=== PATIENT | female | born 1955 | race Caucasian/White ===

== ENCOUNTER → 2023-09-01 13:03 | Outpatient (REF) | payer MEDICARE, SELFPAY | LOC: RCS 13:03 | PROVIDERS: ATTENDING PHYSICIAN Internal Medicine; FAMILY PHYSICIAN Family Medicine | DX: I10 Essential (primary) hypertension (principal); I48.0 Paroxysmal atrial fibrillation | CPT/HCPCS: 93306 ==

== ENCOUNTER → 2023-09-15 12:57 | Outpatient (REF) | payer MEDICARE, SELFPAY ==
[2023-09-15 13:32] LABS: % Basophils 0.3 % (0-2); % Eosinophils 1.7 % (0-6); % Immature Granulocytes 0.2 % (0-0.5); % Lymphocytes 17.6 % (20.5-51.1); % Monocytes 5.3 % (1.7-9.3); % Neutrophils 74.9 % (42.2-75.2); Absolute Eosinophils 0.2 10^3/uL (0-0.7); Absolute Lymphocytes 1.6 10^3/uL (1.2-3.4); Absolute Monocytes 0.5 10^3/uL (0.1-0.6); Absolute Neutrophils 6.6 10^3/uL (1.4-6.5); Hematocrit 36.3 % (37.0-47.0); Mean Corp Hgb Conc. 33.1 g/dL (33.0-37.0); Mean Corpuscular Hgb 31.8 pg (27.0-31.0); Mean Corpuscular Volume 96.3 fL (81.0-99.0); Mean Platelet Volume 9.5 fL (7.4-10.4); Nucleated Red Blood Cells % 0 %; Platelet Count 223 10^3/uL (130-400); Red Blood Cell Count 3.77 10^6/uL (4.20-5.40); Red Cell Dist. Width 12.5 % (11.5-14.5); White Blood Cell Count 8.8 10^3/uL (4.8-10.8)
[2023-09-15 14:38] LABS: ALT (SGPT) 16 U/L (0-35); AST (SGOT) 22 U/L (14-36); Albumin 3.9 g/dl (3.5-5.0); Alkaline Phosphatase 196 U/L (38-126); Blood Urea Nitrogen 13 mg/dl (7-17); Calcium 9.6 mg/dl (8.4-10.2); Carbon Dioxide 28 mmol/L (22-30); Chloride 99 mmol/L (98-107); Glucose 89 mg/dl (70-99); Sodium 135 mmol/L (135-145); Total Bilirubin 0.7 mg/dl (0.2-1.3); eGFR > 60.00
== END ==
LOC: REG 12:57
PROVIDERS: ATTENDING PHYSICIAN Surgery Plastic and Reconstructive Surgery; FAMILY PHYSICIAN Family Medicine
DX: Z01.818 Encounter for other preprocedural examination (principal)
CPT/HCPCS: 36415; 80053; 85025

== ENCOUNTER 2023-09-22 06:12 | Day surgery (SDC) | payer MEDICARE, SELFPAY ==
[2023-09-22] VITALS (10 sets, daily range): BP systolic 123–166; BP diastolic 63–83; BMI 45.1
--- NOTE | 2023-09-22 10:48 | W.SUR.PREOP ---
Pre-Operative Surgical Note
-
I have examined this patient prior to the performance of the scheduled procedure.
The patient's condition is unchanged from the time of the current History and
Physical and the patient is able to undergo the scheduled procedure.
[2023-09-22] MEDS: NORMOSOL-R 1000 IV (11:21)
[2023-09-22] MEDS: TYLENOL 1000 MG PO (11:25)
[2023-09-22] MEDS: TAMBOCOR 100 MG PO (11:40)
--- NOTE | 2023-09-22 15:49 | W.IMMPOSTOP ---
Surgical Immed Post Op Note
-
Primary Surgeon: ERIKA Orosco MD
Assisting Surgeon:
Pre-op Diagnosis: left neck mass
Post-op Diagnosis: same
Procedure Performed: excision of subfascial soft tissue mass left neck, 7 x 13 cm
Anesthesia Type: General
Specimen / Cultures: left neck mass
Estimated Blood Loss: minimal
Complications: none
Operative Findings: as expected,
--- NOTE | 2023-09-22 15:50 | OR.RPT ---
Operative Report
Operative Report
Surgeon: ERIKA Orosco MD
Preoperative diagnosis: Left neck soft tissue mass, subfascial consistent with benign lipomatous neoplasm
Postoperative diagnosis: Same
Procedure:
1. Excision of soft tissue mass, subfascial, 7 x 13 cm, left neck
2. Complex closure left neck wound 6.5 cm
Anesthesia: General
Specimens: Left neck mass
EBL: Minimal
Drains: 1One 8 mm MAURO drain
Complications: None
Indication for procedure: Patient is a 67-year-old female with a longstanding history of a left neck mass. She has undergone prior CT scan showing that this was consistent with a benign lipomatous process. CT scan notes that it was superficial in
nature but subplatysmal. This was increasingly symptomatic for her and she desired excision for treatment and pathological diagnosis. She notes that she feels the mass had grown over the past year or 2. Given the location we discussed the
intricacies of neck surgery at length including the nearby arteries veins and nerves. Every attempt would be made to remove the mass without disturbing the structures. That said risk of damage to the nearby vessels or nerves was possible. We also
discussed hematoma and a complicated airway in a patient with YAMIL at length. This could be life-threatening in nature. A drain would be left but may not be adequate to evacuate an expanding hematoma. She understood these risks and desired to
proceed accordingly. We also discussed scar, infection, seroma, recurrence. she is aware that benign masses may not be excised in total as to avoid complications associated with nearby essential structures.
Procedure in detail: Patient was identified in the preoperative area and the surgical site was confirmed to be the left neck. The mass was delineated and a linear marking was made over the most prominent portion of the mass superior to the
clavicle. All questions were answered and consents were confirmed. Patient was taken back to the operating room placed supine on the table. Anesthesia induced and and endotracheal tube was placed. The patient was then prepped and draped in
usual sterile fashion using ChloraPrep solution. A 6 cm incision was planned overlying the mass and local anesthesia was injected 1% lidocaine with epinephrine. It prior to procedure beginning a timeout for patient safety was performed and was
confirmed that bilateral SCDs were in place and preoperative antibiotics have been administered. Procedure began by making an incision along the markings with a 15 blade and dissection carried down to the subcutaneous tissue with Bovie
electrocautery. The platysma was transected being sure to protect any underlying nerves and vessels. The mass was found to be deep to the platysma. As such a very intricate and delicate dissection was performed to identify the encapsulated mass
and freed from the surrounding tissues. All nerves and vessels that were encountered were protected and retracted away. The mass ran very deep into the neck and as such the decision was made in the overabundance of safety to excise the accessible
portions without exposing the patient to undue risk. the large majority of the mass was excised and sent for pathology. This measured 7 x 13 cm in total. Meticulous hemostasis was ensured and the wound bed was inspected. A small MAURO drain was
left in the surgical wound a complex closure was performed over the 6.5 cm length that resulted. Suture approximation was completed deep with 3-0 Monocryl's followed by running subcuticular. Dermabond was applied the incision. The drain was
sutured in place with a 2-0 nylon. Patient tolerated the procedure well was performed without complication. All counts were correct at the end the case. She was extubated taken the PACU for further care.
== END 2023-09-22 17:00 | disposition home or self-care (01) ==
LOC: SDS 06:12
PROVIDERS: ATTENDING PHYSICIAN Surgery Plastic and Reconstructive Surgery
DX: D17.0 Benign lipomatous neoplasm of skin and subcutaneous tissue of head, face and neck (principal)
CPT/HCPCS: 21554; 13132; 88304

== ENCOUNTER → 2023-10-13 11:08 | Outpatient (REF) | payer MEDICARE, SELFPAY ==
[2023-10-13 12:41] LABS: ALT (SGPT) 19 U/L (0-35); AST (SGOT) 21 U/L (14-36); Albumin 3.7 g/dl (3.5-5.0); Alkaline Phosphatase 198 U/L (38-126); Alkaline Phosphatase, Total 198 U/L (38-126); Blood Urea Nitrogen 16 mg/dl (7-17); Calcium 9.1 mg/dl (8.4-10.2); Carbon Dioxide 29 mmol/L (22-30); Chloride 101 mmol/L (98-107); GGTP 21 U/L (12-43); Glucose 98 mg/dl (70-99); Sodium 138 mmol/L (135-145); Total Bilirubin 0.7 mg/dl (0.2-1.3); Total Protein 6.8 g/dl (6.3-8.2); eGFR > 60.00
[2023-10-13 14:59] LABS: Alk Phos After Heat 70; Alkaline Phosphatase Percent 35.35
[2023-10-15 18:20] LABS: Mitochondrial M2 Ab, IgG 1.7 Units (0.0-24.9)
== END ==
LOC: REG 11:08
PROVIDERS: ATTENDING PHYSICIAN Internal Medicine Gastroenterology; FAMILY PHYSICIAN Family Medicine
DX: R74.8 Abnormal levels of other serum enzymes (principal)
CPT/HCPCS: 36415; 80053; 82977; 84078; 86381

== ENCOUNTER → 2023-11-30 06:22 | Day surgery (SDC) | payer MEDICARE, SELFPAY | LOC: GI 06:22 | PROVIDERS: ATTENDING PHYSICIAN Internal Medicine Gastroenterology; FAMILY PHYSICIAN Family Medicine | DX: Z12.11 Encounter for screening for malignant neoplasm of colon (principal); D12.4 Benign neoplasm of descending colon; K57.30 Diverticulosis of large intestine without perforation or abscess without bleeding; K62.1 Rectal polyp; K64.8 Other hemorrhoids; R74.8 Abnormal levels of other serum enzymes; K44.9 Diaphragmatic hernia without obstruction or gangrene; K31.7 Polyp of stomach and duodenum; K31.A0 Gastric intestinal metaplasia, unspecified; K31.89 Other diseases of stomach and duodenum; Z86.010 Personal history of colon polyps | CPT/HCPCS: 45380; 43239; 88305; 88342 ==

== ENCOUNTER → 2025-01-24 10:26 | Outpatient (REF) | payer MEDICARE, SELFPAY | LOC: HWWDC 10:26 | PROVIDERS: ATTENDING PHYSICIAN Nurse Practitioner Adult Health | DX: Z12.31 Encounter for screening mammogram for malignant neoplasm of breast (principal); Z78.0 Asymptomatic menopausal state; E55.9 Vitamin D deficiency, unspecified; F41.1 Generalized anxiety disorder | CPT/HCPCS: 77063; 77067; 77080 ==

== ENCOUNTER → 2025-02-27 16:39 | Outpatient (REF) | payer MEDICARE, SELFPAY | LOC: RAD 16:39 | PROVIDERS: ATTENDING PHYSICIAN Registered Nurse | DX: S89.92XA Unspecified injury of left lower leg, initial encounter (principal) | CPT/HCPCS: 73564 ==